=== PATIENT | male | born 1970 | race Caucasian/White ===

== ENCOUNTER → 2020-06-08 | Outpatient (CLI) | payer OTHER ==
--- NOTE | 2020-06-08 11:57 | XR ---
EXAMINATION TYPE: XR knee complete RT DATE OF EXAM: 06/08/2020 CLINICAL HISTORY: Fall on right knee 2 days ago. Pain medially and laterally. Painful to walk. TECHNIQUE: Three views of the right knee are obtained. COMPARISON: None. FINDINGS: There is no acute fracture/dislocation evident in right knee. The tri-compartment joint s paces appear within normal limits. There is a large suprapatellar joint effusion. The overlying soft tissue appears unremarkable. IMPRESSION: Large suprapatellar joint effusion. No acute osseous normality.
== END | disposition home or self-care (01) ==
LOC: RADXRMAIN 10:28
PROVIDERS: ATTEND Nurse Practitioner Family
DX: M25.461 Effusion, right knee (principal)

== ENCOUNTER 2020-12-15 07:20 | Emergency (ER) | payer OTHER ==
[2020-12-15 07:30] VITALS: BP 142/87; PULSE 104; RESP 18; TEMP 97.7
[2020-12-15] MEDS ORDERED: KETOROLAC 15 MG/ML 1 ML VIAL IM STA (07:46)
--- NOTE | 2020-12-15 08:21 | XR ---
EXAMINATION TYPE: XR pelvis AP view DATE OF EXAM: 12/15/2020 CLINICAL HISTORY: pain TECHNIQUE: Single view the pelvis is submitted. FINDINGS: No evidence for fracture, dislocation or bony lesion. Joint spaces are well-preserved. S I joints appear symmetric. IMPRESSION: 1. No acute fracture or dislocation seen. ICD 10 NO FRACTURE, INITIAL EVALUATION
--- NOTE | 2020-12-15 08:38 | ED ---
General Adult HPI - General Chief complaint: Back Pain/Injury Stated complaint: Back Pain [facility] Time Seen by Provider: 12/15/20 07:25 Source: patient, RN notes reviewed, old records reviewed Mode of arrival: wheelchair Limitations: physical limitation - History of Present Illness Initial comments: This is a 50-year-old male who presents to the emergency department complaining of right-sided lower back pain. 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 Patient states he thinks he is unable to work today because it hurt so much to move or bend. Patient states it is more painful with palpation and just about any movement. Patient denies any pain radiating down the leg. Patient denies any spine pain. Patient denies any abdominal pain. Patient states his shoulders are little achy but he does not consider that to be a problem. Patient denies any other injury at this time. - Related Data Home Medications Medication Instructions Recorded Confirmed Insulin Detemir (Levemir) [Levemir] 26 unit SQ HS 12/15/20 12/15/20 Prilosec (Unknown Dose) 1 tab PO DAILY 12/15/20 12/15/20 Sertraline HCl [Zoloft] 200 mg PO DAILY 12/15/20 12/15/20 glipiZIDE [Glucotrol] 20 mg PO AC-BID 12/15/20 12/15/20 Previous Rx's Medication Instructions Recorded Cyclobenzaprine [Flexeril] 10 mg PO TID #20 tab 12/15/20 Ketorolac [Toradol] 10 mg PO Q6HR #15 tab 12/15/20 Allergies Allergy/AdvReac Type Severity Reaction Status Date / Time morphine AdvReac palpitation Verified 12/15/20 08:26 s Review of Systems ROS Statement: Those systems with pertinent positive or pertinent negative responses have been documented in the HPI. ROS Other: All systems not noted in ROS Statement are negative. Past Medical History Past Medical History: Diabetes Mellitus, GERD/Reflux History of Any Multi-Drug Resistant Organisms: None Reported Past Surgical History: No Surgical Hx Reported Past Psychological History: Depression Smoking Status: Never smoker Past Alcohol Use History: Occasional Past Drug Use History: None Reported General Exam - General Exam Comments Initial Comments: GENERAL Patient is well-developed and well-nourished. Patient is in mild distress. EYES Patient's pupils are equal and round. Extraocular motion is intact SKIN Unremarkable NEURO The patient is alert and oriented 3 PYSCH Patient has normal interpersonal interactions. MUSCULOSKELETAL Patient has tenderness at the area of the right iliac crest there is no bruising or swelling noted but is painful to palpation or any time the patient bends or twists. Limitations: physical limitation Course Vital Signs 12/15/20 07:27 Temperature 97.7 F Pulse Rate 104 H Respiratory 18 Rate Blood Pressure 142/87 O2 Sat by Pulse 98 Oximetry Medical Decision Making - Medical Decision Making Patient received Toradol emergency department was feeling considerably better. Disposition Clinical Impression: Strain of lumbar region Disposition: HOME SELF-CARE Condition: Good Instructions (If sedation given, give patient instructions): Acute Low Back Pain (ED) Prescriptions: Cyclobenzaprine [Flexeril] 10 mg PO TID #20 tab Ketorolac [Toradol] 10 mg PO Q6HR #15 tab Is patient prescribed a controlled substance at d/c from ED?: No Referrals: Jasmine Murillo MD [Primary Care Provider] - 1-2 days Time of Disposition: 08:37
== END 2020-12-15 09:11 | disposition home or self-care (01) ==
LOC: EC 07:20
DX: S39.012A Strain of muscle, fascia and tendon of lower back, initial encounter (principal); E11.9 Type 2 diabetes mellitus without complications; K21.9 Gastro-esophageal reflux disease without esophagitis; F32.9 Major depressive disorder, single episode, unspecified; Z79.4 Long term (current) use of insulin; Z79.899 Other long term (current) drug therapy; Z88.5 Allergy status to narcotic agent; X58.XXXA Exposure to other specified factors, initial encounter; Y92.69 Other specified industrial and construction area as the place of occurrence of the external cause; Y99.0 Civilian activity done for income or pay
CPT/HCPCS: 72170; 99284; 96372; J1885

== ENCOUNTER → 2021-04-19 | Outpatient (CLI) | payer BC ==
--- NOTE | 2021-04-19 16:11 | ECHOS ---
STRESS ECHOCARDIOGRAM DATE OF STUDY: 04/19/2021 INDICATIONS: Chest pain. BASELINE HEART RATE: 96 BASELINE BLOOD PRESSURE: 142/92 MAXIMUM HEART RATE: 156 MAXIMUM BLOOD PRESSURE: 239/82 85% MPHR: 143 100% MPHR: 168 METS: 6.7 MAXIMUM STAGE REACHED: 3 TOTAL EXERCISE TIME: 7:21 CLINICAL INFORMATION: Chest pain STRESS DATA: Heart rate is 96, pressure is 142/92 mmHg. Baseline EKG showed sinus mechanism. The patient exercised on the treadmill according to Chuckie protocol for a total of 4 minutes and 21 seconds and achieved 6.7 METS. Max heart rate was 156 which is about 93% of maximum predicted heart rate with maximum blood pressure of 239/82 mmHg. Clinically, the patient developed shortness of breath. The EKG did not show any significant ST or T-wave abnormalities concerning for ischemia. ECHOCARDIOGRAM IMAGES: On echocardiogram images from parasternal long axis view, parasternal short axis view, apical 4 chambers and apical 2 chambers were obtained as the baseline images, as well as at the peak of the heart rate as well as on recovery and the echocardiogram images showed good augmentation in the left ventricular systolic function without any evidence of wall motion abnormalities concerning for ischemia. CONCLUSION: 1. Good exercise tolerance. 2. Normal EKG in response to exercise. 3. Exaggerated blood pressure in response to exercise. 4. Normal echocardiogram in response to exercise as well. MMODL / IJN: [id number] /
== END | disposition home or self-care (01) ==
LOC: RADNMMAIN 09:05
PROVIDERS: ATTEND Family Medicine
DX: R94.31 Abnormal electrocardiogram [ECG] [EKG] (principal)
CPT/HCPCS: 93351